=== PATIENT | male | born 1945 | race Caucasian/White ===

== ENCOUNTER → 2021-02-02 09:53 | Outpatient (CLI) | payer MEDICARE, BC, SELFPAY ==
--- NOTE | ~2021-02-02 | US_ITS ---
EXAMINATION: US joint non vasc comp LT EXAM DATE: 02/02/2021 14:31 INDICATION: Chronic pain of left knee. TECHNIQUE: Multiple grayscale and Doppler images of the left popliteal fossa were obtained (by a tech nologist who performed the scan) and subsequently reviewed. There is no prior study for comparison. FINDINGS: Mild popliteal arterial sclerosis. The popliteal vein was compressible and nonthrombosed. No Herrera's cyst, mass or other abnormality was identified. IMPRESSION: 1. Unremarkable ultrasound exam. Reviewed, dictated and finalized at location B.
== END ==
PROVIDERS: PCP Registered Nurse; Visit Provider Registered Nurse
DX: M25.562 Pain in left knee (principal); G89.29 Other chronic pain
CPT/HCPCS: 76881

== ENCOUNTER 2021-09-10 11:24 | Emergency (ER) | payer MEDICARE, BC, SELFPAY ==
[2021-09-10 11:38] VITALS: BP 182/95; PULSE 79; RESP 16; TEMP 37; O2SAT 99
--- NOTE | 2021-09-10 11:40 | ECG_ITS ---
Measurements Intervals [place] Rate: 73 P: 56 OK: 168 QRS: -25 QRSD: 107 T: 65 QT: 384 QTc: 425 Interpretive Statements SINUS RHYTHM POSSIBLE LEFT ATRIAL ENLARGEMENT [-0.1mV P WAVE IN V1/V2] BORDERLINE LEFT AXIS DEVIATION [QRS AXIS < -20] POOR R-WAVE PROGRESSION NO PREVIOUS ECG AVAILABLE FOR COMPARISON Electronically Signed On 09-11-2021 7:54:31 CDT by Harvinder Rios M.D.
--- NOTE | 2021-09-10 12:20 | ED.DIZZY ---
HPI - Dizziness General Chief Complaint: Dizziness Stated Complaint: dizziness Time Seen by Provider: 09/10/21 11:59 Source: patient and RN notes reviewed Mode of arrival: ambulatory Limitations: no limitations History of Present Illness HPI Narrative: Patient presents today complaining of dizziness that began last night. States it resolved as he was sleeping, but started again when he woke up this morning. It is significantly exacerbated with movement of his head from side to side and with bending over and nodding. Accompanied by nausea. States he had been holding onto objects as he was walking. Reports his nausea and dizziness had improved as he sits still. He did take some for nausea at home. Denies chest pain, shortness of breath, weakness, racing heart or palpitations, ear pain. States recently he has had some allergy symptoms, fullness in his ears, rhinorrhea. He does not take any allergy medication. History of high blood pressure and migraines. No history of vertigo. MD elicited complaint: dizziness Related Data Home Medications Medication Instructions Recorded Confirmed alprazolam 0.25 mg tablet See Rx Instructions .ROUTE .COMPLEX 04/29/19 glucosamine HCl 500 mg tablet See Rx Instructions .ROUTE .COMPLEX 04/29/19 magnesium oxide See Rx Instructions .ROUTE .COMPLEX 04/29/19 melatonin 1 mg tablet See Rx Instructions .ROUTE 04/29/19 .COMPLEX tablet multivitamin with minerals See Rx Instructions .ROUTE .COMPLEX 04/29/19 saw palmetto 450 mg capsule 450 mg PO DAILY cap 04/29/19 tadalafil 5 mg tablet See Rx Instructions .ROUTE .COMPLEX 04/29/19 cholecalciferol (vitamin D3) 25 1,000 unit PO DAILY 04/30/19 mcg (1,000 unit) capsule Culturelle 09/10/21 Hyaluronan 09/10/21 mirabegron [Myrbetriq] mg PO 09/10/21 Allergies Allergy/AdvReac Type Severity Reaction Status Date / Time Iodinated Contrast Media Allergy Severe Rash Verified 09/10/21 11:48 Cephalosporins Allergy Intermediate Rash Verified 09/10/21 11:48 dexamethasone Allergy Intermediate Palpitation Verified 09/10/21 11:48 s tobramycin Allergy Intermediate Rash Verified 09/10/21 11:48 cyclosporine Allergy Mild hives Verified 12/24/12 13:00 Quinolones Allergy Mild Other Verified 09/10/21 11:48 cephalexin Allergy Unknown Rash Verified 09/10/21 11:48 ciprofloxacin Allergy Unknown Other Verified 09/10/21 11:48 Penicillins Allergy Unknown Other Verified 09/10/21 12:35 Contrast Media Allergy Severe Rash Uncoded 09/10/21 11:48 cortisone shot Allergy Palpitation Uncoded 09/10/21 11:48 s Review of Systems Review of Systems: CONSTITUTIONAL: Denies body aches, fever, chills, or sweats. EYES: Denies visual changes, redness, or discharge. ENT: Denies rhinorrhea, congestion, sore throat, or otalgia. CARDIOVASCULAR: Denies chest pain, palpitations, or edema. RESPIRATORY: Denies cough or dyspnea. GASTROINTESTINAL: Denies abdominal pain, vomiting, or diarrhea.+ Nausea GENITOURINARY: Denies dysuria or hematuria. SKIN: Denies rash, itching, or wounds. MUSCULOSKELETAL: Denies back pain, joint pain, or myalgia. NEUROLOGIC: Denies headache, numbness, tingling, or weakness.+ Dizziness PSYCH: Denies depression or anxiety. [facility] Past Medical History Medical History (Updated 09/10/21 @ 12:35 by Emily Rose, [facility], ) Anxiety Erectile dysfunction Hypertension Family History Family History Sibling Patient's sister is in good health Mother Hypertension, Onset Age: 85 Cerebrovascular accident, Onset Age: 85 Family history of Alzheimer's disease, Onset Age: 85 Father Family history of gastrointestinal disorder, Onset Age: 74 Social History Social History Smoking status: Never smoker Smoking end date: 05/21/1968 Alcohol intake: current Comments At time of signature, I have reviewed and a
[2021-09-10] MEDS: MECLIZINE HCL 25 MG TABLET 50 MG PO (12:27)
== END 2021-09-10 12:42 | disposition home or self-care (01) ==
PROVIDERS: Emergency Provider Nurse Practitioner; PCP Registered Nurse
DX: R42 Dizziness and giddiness (principal); H74.8X3 Other specified disorders of middle ear and mastoid, bilateral; H61.23 Impacted cerumen, bilateral; I10 Essential (primary) hypertension; F41.9 Anxiety disorder, unspecified
CPT/HCPCS: 69210; 93005; 99213; A9270; G0463

== ENCOUNTER 2021-10-18 10:59 | Emergency (ER) | payer MEDICARE, BC, SELFPAY ==
[2021-10-18 11:07] VITALS: BP 180/102; PULSE 79; RESP 16; TEMP 36.4; O2SAT 98
--- NOTE | 2021-10-18 11:17 | ED.SKABFB ---
HPI - Skin/Abscess/Foreign Bdy General Chief complaint: Skin/Abscess/Foreign Body Stated complaint: fever blister Time Seen by Provider: 10/18/21 11:19 Source: patient and RN notes reviewed Mode of arrival: ambulatory Limitations: no limitations History of Present Illness HPI narrative: 76-year-old male presents to the [facility] with complaints of a fever blister to the bottom lip and to the right nostril for the last 3 days. No redness or swelling. No history of fever blisters. Denies fevers. No upper respiratory infections Onset (ago): day(s) (3) Related Data Home Medications Medication Instructions Recorded Confirmed alprazolam 0.25 mg tablet See Rx Instructions .Route .COMPLEX 04/29/19 glucosamine HCl 500 mg tablet See Rx Instructions .Route .COMPLEX 04/29/19 magnesium oxide See Rx Instructions .Route .COMPLEX 04/29/19 melatonin 1 mg tablet See Rx Instructions .Route .COMPLEX 04/29/19 multivitamin with minerals See Rx Instructions .Route .COMPLEX 04/29/19 saw palmetto 450 mg capsule 450 mg PO DAILY 04/29/19 tadalafil 5 mg tablet (Cialis) See Rx Instructions .Route .COMPLEX 04/29/19 cholecalciferol (vitamin D3) 25 1,000 unit PO DAILY 04/30/19 mcg (1,000 unit) capsule Culturelle 09/10/21 Hyaluronan 09/10/21 mirabegron 25 mg tablet,extended mg PO 09/10/21 release 24 hr (Myrbetriq) Allergies Allergy/AdvReac Type Severity Reaction Status Date / Time Iodinated Contrast Media Allergy Severe Rash Verified 10/18/21 11:31 Cephalosporins Allergy Intermediate Rash Verified 10/18/21 11:31 dexamethasone Allergy Intermediate Palpitation Verified 10/18/21 11:31 s tobramycin Allergy Intermediate Rash Verified 10/18/21 11:31 cyclosporine Allergy Mild hives Verified 10/18/21 11:31 Quinolones Allergy Mild Other Verified 10/18/21 11:31 cephalexin Allergy Unknown Rash Verified 10/18/21 11:31 ciprofloxacin Allergy Unknown Other Verified 10/18/21 11:31 Penicillins Allergy Unknown Other Verified 10/18/21 11:31 Contrast Media Allergy Severe Rash Uncoded 10/18/21 11:32 cortisone shot Allergy Palpitation Uncoded 10/18/21 11:32 s Review of Systems Review of Systems: All systems reviewed & are unremarkable except as noted in HPI and below Constitutional: Constitutional: Reports no additional constitutional complaints, Denies chills and Denies fever(s) Eyes: Eyes: Reports no additional eye complaints ENT: Reports as per HPI (Sore on bottom lip and inside left nostril) Cardiovascular: Cardiovascular: Reports no additional cardiovascular complaints Respiratory: Respiratory: Reports no additional respiratory complaints Gastrointestinal: Gastrointestinal: Reports no additional gastrointestinal complaints Musculoskeletal: Musculoskeletal: Reports no additional musculoskeletal complaints Integumentary/Breasts: Skin/Breast: Reports system reviewed and no additional complaints, except as docu Neurologic: Reports system reviewed and no additional complaints, except as documented Psychiatric: Psychiatric: Reports no additional psychiatric complaints Allergic/Immunologic: Allergic/Immunologic: Reports no additional allergic/immunologic complaints [facility] Past Medical History Medical History (Updated 10/18/21 @ 11:30 by Cherie Marley APRN) Anxiety Erectile dysfunction Hypertension Family History Family History Sibling Patient's sister is in good health Mother Hypertension, Onset Age: 85 Cerebrovascular accident, Onset Age: 85 Family history of Alzheimer's disease, Onset Age: 85 Father Family history of gastrointestinal disorder, Onset Age: 74 Social History Social History Smoking status: Never smoker Smoking end date: 05/21/1968 Alcohol intake: current Comments At the time of my signature, I reviewed and agree with the nursing past medical, surgical, socia
== END 2021-10-18 11:35 | disposition home or self-care (01) ==
PROVIDERS: Emergency Provider Nurse Practitioner; PCP Registered Nurse
DX: B00.1 Herpesviral vesicular dermatitis (principal); I10 Essential (primary) hypertension; F41.9 Anxiety disorder, unspecified
CPT/HCPCS: 99213; G0463

== ENCOUNTER 2024-11-18 11:22 | Outpatient (CLI) | payer MEDICARE, BC, SELFPAY ==
--- NOTE | ~2024-11-18 | US_ITS ---
EXAMINATION: US soft tissue LE DATE: 11/18/2024 11:55 INDICATION: Herrera's cyst TECHNIQUE: Multiple grayscale and Doppler ultrasound images of the abdomen were obtained. COMPARISON: None FINDINGS: Fusiform popliteal artery aneurysm extending approximately 5.6 cm in length and measuring up to 3.0 x 2.6 cm in maximal diameter with peripheral hypoechoic likely intramural thrombus. No evident Herrera's cyst. IMPRESSION: 1. 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 Reviewed, dictated and finalized at location A.
== END 2024-11-18 11:23 | disposition home or self-care (01) ==
LOC: MICIMG 11:23
PROVIDERS: PCP Registered Nurse; Visit Provider Nurse Practitioner Family
DX: M25.561 Pain in right knee (principal); I72.4 Aneurysm of artery of lower extremity
CPT/HCPCS: 76882

== ENCOUNTER 2024-12-21 18:51 | Emergency (ER) | payer MEDICARE, BC, SELFPAY ==
--- NOTE | ~2024-12-21 | XR_ITS ---
EXAM: XR hand LT min 3V DATE: 12/21/2024 19:07 HISTORY: fall. pain to 1st metacarpal and finger. . COMPARISON: None available. FINDINGS: Lateral view limited by overlapping fingers. Normal mineralization. No fracture or disloca tion. No lytic or blastic lesion. 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 No erosion or periosteal change. Soft tissues within normal limits. IMPRESSION: No definite acute osseous finding detected. However, the lateral view is limited by overl apping fingers, consider repeat lateral view of the hand with attention to positioning. Reviewed, dictated and finalized at location K. IMPRESSION: No definite acute osseous finding detected. However, the lateral vi ew is limited by overlapping fingers, consider repeat lateral view of the hand with attention to positioning.
[2024-12-21 18:59] VITALS: BP 120/80; PULSE 70; RESP 16; TEMP 36.8; O2SAT 97
--- NOTE | 2024-12-21 19:08 | ED.UPPEXIN ---
HPI - Extremity Injury (Upper) General Chief Complaint: Extremity Injury, Upper Stated Complaint: Injured Left Thumb Time Seen by Provider: 12/21/24 18:59 Source: patient and RN notes reviewed Mode of arrival: ambulatory Limitations: no limitations History of Present Illness HPI narrative: Patient presents today complaining of an injury to left hand, primarily the thumb area. He fell about an hour and half prior to arrival while working outside in his yard. Denies numbness or tingling in the hand or thumb. Rates pain 1/10 at rest, which increases with movement. He played some ice at home but has taken no medication for symptoms prior to arrival. Related Data Home Medications ?Medication ?Instructions ?Recorded ?Confirmed ?Last Taken ?Type glucosamine HCl 500 mg tablet See Rx Instructions .Route .COMPLEX 04/29/19 09/18/22 Unknown History melatonin 1 mg tablet See Rx Instructions .Route .COMPLEX 04/29/19 09/18/22 Unknown History multivitamin with minerals See Rx Instructions .Route .COMPLEX 04/29/19 09/18/22 Unknown History saw palmetto 450 mg capsule 450 mg PO DAILY 04/29/19 09/18/22 Unknown History tadalafil 5 mg tablet (Cialis) See Rx Instructions .Route .COMPLEX 04/29/19 09/18/22 Unknown History cholecalciferol (vitamin D3) 25 1,000 unit PO DAILY 04/30/19 09/18/22 Unknown History mcg (1,000 unit) capsule Culturelle 09/10/21 09/18/22 Unknown History Hyaluronan 09/10/21 09/18/22 Unknown History Lactobacillus acidophilus 10 mg PO DAILY 08/23/22 09/18/22 Unknown History glucosamine HCl 750 mg tablet 750 mg PO DAILY 08/23/22 09/18/22 Unknown History mirabegron 50 mg tablet,extended mg PO 12/21/24 Unknown History release 24 hr Allergies Allergy/AdvReac Type Severity Reaction Status Date / Time Iodinated Contrast Media Allergy Severe Rash Verified 12/21/24 18:56 Cephalosporins Allergy Intermediate Rash Verified 12/21/24 18:56 dexamethasone Allergy Intermediate Palpitation Verified 12/21/24 18:56 s tobramycin Allergy Intermediate Rash Verified 12/21/24 18:56 cyclosporine Allergy Mild hives Verified 12/21/24 18:56 Quinolones Allergy Mild Other Verified 12/21/24 18:56 cephalexin Allergy Unknown Rash Verified 12/21/24 18:56 ciprofloxacin Allergy Unknown Other Verified 12/21/24 18:56 Penicillins Allergy Unknown Other Verified 12/21/24 18:56 bromfenac AdvReac Blurry Verified 12/21/24 18:56 Vision trimethoprim AdvReac Blurry Verified 08/23/22 11:36 Vision Contrast Media Allergy Severe Rash Uncoded 12/21/24 18:56 cortisone shot Allergy Palpitation Uncoded 12/21/24 18:56 s tobramycin-dexamethasone AdvReac Rash Uncoded 12/21/24 18:56 PMFSH Past Medical History Medical History (Updated 12/21/24 @ 19:40 by Emily Rose, [employer], ) Hypertension Erectile dysfunction Anxiety Family History Family History Sibling Patient's sister is in good health Mother Hypertension, Onset Age: 85 Cerebrovascular accident, Onset Age: 85 Family history of Alzheimer's disease, Onset Age: 85 Father Family history of gastrointestinal disorder, Onset Age: 74 Social History Social History Smoking status: Never smoker Smoking end date: 05/21/1968 Alcohol intake: current Lack of Transportation: No Lack of Food: Never True Current Housing: I Have Housing Concerned About Future Housing: No Difficulty Paying Gas/Electric Bills: No Difficulty Paying for Meds: No Currently Unemployed: No Education: Trade/Vocational Certificate Difficulty w/ Childcare or Family Care: No Comments At time of signature, I have reviewed and agree with nursing past medical, surgical, social and family history unless otherwise noted. Please see nursing chart for further information. There is no relevant family history pertinent to the presenting complaint Exam Narrative: GENERAL: Well-appearing, well-nourished, and in no acute distress. HEAD: Normocephalic, atraumatic. EYES: EOMI. No redness or drainage. Conjunctivae normal. ENT: Mucous membranes pink and moist. NECK: Normal AROM. CHEST: No respiratory distress. EXTREMITIES: Left hand: Tenderness to the thumb extending to the metatarsal. No snuffbox tenderness. No edema, ecchymosis, erythema, or deformity noted. Distal sensation intact. Capillary refill normal. Radial pulse normal. Full range of motion of thumb with increased pain. SKIN: Warm, dry, no rash. Capillary refill normal. Normal skin turgor. NEURO: No focal deficits. Alert and oriented x3. Gait steady. PSYCH: Normal affect. No signs of depression or anxiety. Course Course Level of Care: Express Care Visit Vital Signs Vital signs: Vital Signs Temperature 98.3 F 12/21/24 18:59 Pulse Rate 70 12/21/24 18:59 Respiratory Rate 16 12/21/24 18:59 Blood Pressure 120/80 12/21/24 18:59 Pulse Oximetry 97 12/21/24 18:59 Temperature 98.3 F 12/21/24 18:59 Pulse Rate 70 12/21/24 18:59 Respiratory Rate 16 12/21/24 18:59 Blood Pressure 120/80 12/21/24 18:59 Pulse Oximetry 97 12/21/24 18:59 Reviewed MDM - Extremity Injury (Upper) MDM Narrative Medical decision making narrative: 79-year-old male patient presents today with pain the left thumb and 1st metatarsal when he fell while working in the yard at his home approximately 1.5 hours prior to exam. Denies numbness or tingling. No OTC treatment prior to arrival. Exam shows tenderness to the left thumb extending to the 1st metatarsal without snuffbox tenderness without deformity, redness, ecchymosis, edema. X-ray shows no definite acute osseous process. Splint was placed for immobilization. Recommend PCP or orthopedic follow-up in 7-10 days if symptoms are not improving. Vital signs stable. Anticipatory guidance given. Differential Diagnosis Differential diagnosis: Likely fracture of hand and other (Finger fracture, contusion, sprain) Imaging Data Radiologist's impression: ITS Impressions Hand X-Ray 12/21/24 19:31 IMPRESSION: No definite acute osseous finding detected. However, the lateral view is limited by overlapping fingers, consider repeat lateral view of the hand with attention to positioning. Critical Care Time Critical Care Time Critical Care Time: No Discharge Plan Discharge Clinical Impression: Finger sprain Qualifiers: Encounter type: initial encounter Finger: thumb Sprain of finger site: unspecified site Laterality: left Qualified Code(s): S63.602A - Unspecified sprain of left thumb, initial encounter Patient Disposition: Home Condition: Stable Instructions: Finger Sprain (ED) Additional Instructions: Your x-ray is negative for fracture today. Wear the splint for comfort. Take Tylenol for pain if needed. Follow-up with your PCP or orthopedic physician in 7-10 days if symptoms are not improving. Patient Language: Syriac Prescriptions: No Action mirabegron 50 mg tablet extended release 24 hr PO Culturelle Hyaluronan Rx Instructions: intra-articular injection per pt list glucosamine HCl 500 mg tablet See Rx Instructions .ROUTE .COMPLEX Rx Instructions: Take tablet oral route 2 X a day ; multivitamin with minerals Tablet See Rx Instructions .ROUTE .COMPLEX Rx Instructions: take 0.5 tablet by oral route once daily ; melatonin 1 mg tablet See Rx Instructions .ROUTE .COMPLEX Rx Instructions: take by oral route once daily ; tadalafil [Cialis] 5 mg tablet See Rx Instructions .ROUTE .COMPLEX Rx Instructions: take 1 to 2 tablets by mouth 3 to 4 times monthly ; saw palmetto 450 mg capsule 450 mg PO DAILY cholecalciferol (vitamin D3) 1,000 unit capsule 1,000 unit PO DAILY glucosamine HCl 750 mg tablet 750 mg PO DAILY Rx Instructions: administer with a meal Lactobacillus acidophilus Capsule 10 mg PO DAILY diltiazem HCl 300 mg capsule,extended release 24 hr 300 mg PO DAILY Qty: 90 1RF losartan-hydrochlorothiazide 50-12.5 mg tablet See Rx Instructions .ROUTE .COMPLEX Qty: 30 2RF Dose Instruction: TAKE 1 TABLET BY MOUTH EVERY DAY Rx Instructions: TAKE 1 TABLET BY MOUTH EVERY DAY Follow-up/Referrals: Jeremiah Neal MD [Physician] - Est[place],CARLTON Hill [Primary Care Provider] - Time of Disposition: 19:40
== END 2024-12-21 19:41 | disposition home or self-care (01) ==
PROVIDERS: Emergency Provider Nurse Practitioner; PCP Registered Nurse
DX: S63.602A Unspecified sprain of left thumb, initial encounter (principal); W19.XXXA Unspecified fall, initial encounter; I10 Essential (primary) hypertension; Z87.891 Personal history of nicotine dependence
CPT/HCPCS: 29130; 73130; 99213; G0463